=== PATIENT | male | born 1985 | race Caucasian/White ===

== ENCOUNTER 2023-01-21 02:48 | Inpatient (IN) | payer OTHER, SELFPAY ==
[2023-01-21 02:49] VITALS: BP 147/118; PULSE 107; RESP 18; TEMP 36.7; O2SAT 99; BMI 26.6
[2023-01-21 03:45] LABS: Basophils % 0.4 %; Eosinophils # 0.1 10^3/uL (0.0-0.8); Eosinophils % 1.2 %; Hematocrit 41.7 % (37-53); Lymphocytes % 12.5 %; Mean Corpuscular HGB Conc 32.1 g/dL (30-55); Mean Corpuscular Volume 93.5 fl (82-101); Mean Platelet Volume 8.5 fL (7.4-10.4); Monocytes # 0.9 10^3/uL (0.2-0.9); Monocytes % 11.1 %; Neutrophils # 6.18 10^3/uL (1.8-7.7); Neutrophils % 74.4 %; Nucleated Red Blood Cells % 0 %; Platelet Count 351 10^3/cmm (157-399); Red Blood Count 4.46 10^6/uL (3.85-5.65); Red Cell Distribution Width 13.2 % (12.1-15.1)
[2023-01-21 04:01] LABS: Add Urine Culture? No; Add Urine Microscopic? YES; Amorphous Sediment Urine 2+ /hpf; Bacteria Urine 1+ /hpf; Bilirubin Urine Neg (Negative); Blood Urine Neg (Negative); Glucose Urine UA Norm (Normal); Ketones Urine Negative (Negative); Leukocyte Esterase Urine Negative (Negative); Nitrate Urine Negative (Negative); Protein Urine Neg (Negative); Sulfosalicylic Acid Urine Negative (Negative); Urine Appearance SL Hazy (CLEAR); Urine Color Yellow (Yellow); Urobilinogen Urine Neg (Negative); pH Urine 8 (5-7)
[2023-01-21 04:02] LABS: Amphetamines Screen Urine Positive (Negative); Barbiturates Screen Urine Negative (Negative); Benzodiazepines Screen Urine Negative (Negative); Cocaine Screen Urine Negative (Negative); Opiate Screen Urine Negative (Negative); PCP Screen Urine Negative (Negative); THC Screen Urine Negative (Negative)
[2023-01-21 04:03] LABS: Alanine Aminotransferase 19 U/L (0-41); Albumin Level 4.1 g/dL (3.5-5.2); Alkaline Phosphatase 84 U/L (40-130); Anion Gap 14.7 (5-19); Aspartate Amino Transferase 18 U/L (0-40); Blood Urea Nitrogen 7 mg/dL (6-20); Calcium 9.4 mg/dL (8.5-10.5); Carbon Dioxide 26 mmol/L (22-29); Chloride 100 mmol/L (98-107); Creatinine Clr Calc Pharmacy 135.5589; Globulin 2.6 g/dL (1.3-4.6); Glomerular Filtration Rate 109.4 mL/min (90-130); Glucose 99 mg/dL (65-115); Osmolality Calculated 282 mOsm/kg (285-295); Potassium 3.7 mmol/L (3.5-5.1); Sodium 137 mmol/L (136-145); Total Bilirubin 1.1 mg/dL (0.15-1.2); Total Protein 6.7 g/dL (6.6-8.7)
[2023-01-21 04:04] LABS: Acetaminophen < 5.0 ug/mL (10-30); Alcohol Level < 10 mg/dL (0-10); Salicylate < 0.3 mg/dL (3-10)
--- NOTE | 2023-01-21 04:36 | PC.NURSE ---
Pt served with copy of 96 Hour Hold by this RN and security. All questions answered.
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
[2023-01-21 05:32] VITALS: BP 135/89; BP 137/74; PULSE 85; RESP 16; TEMP 37.1; O2SAT 98
[2023-01-21 06:00] VITALS: BP 135/89; PULSE 85; RESP 16; TEMP 37.1; O2SAT 98
[2023-01-21 14:00] VITALS: BP 128/74; PULSE 86; RESP 14; TEMP 37.1; O2SAT 94
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
[2023-01-21 20:44] VITALS: RESP 16
[2023-01-22 06:00] VITALS: BP 117/85; PULSE 80; RESP 18; O2SAT 98
[2023-01-22 14:00] VITALS: BP 123/79; PULSE 104; RESP 14; TEMP 36.9; O2SAT 99
--- NOTE | 2023-01-22 16:27 | P.NPUPN_ITS ---
Subjective NPU 2 Subjective: Patient presented today reporting that he is doing better. He continues to downplay the situation that led to the hospitalization. He continues to focus on wanting to be discharged. We continue to discuss the guns and that behavior and concerns about his restlessness. He continues to report no need for medication. Mental Status Exam 2 MSE Comments: This is a well-nourished, well-developed, white male, in hospital scrubs, with limited grooming and eye contact. No abnormal movements, except for mild psychomotor retardation. Cooperative with exam in no acute distress. Speech was decreased rate and volume. Mood described as fine; affect subdued. Thought process, organized. Thought content: patient denied any suicidal or homicidal ideation, there were no delusions reported or noted, patient denied any auditory or visual hallucinations. Attention, concentration, and memory appeared intact, but none were formally tested. Alert and oriented times three. Insight and judgment appear impaired. Impulse control is impaired. Vitals/I&O/Wt Last Vital Signs Temp 98.8 F 01/21/23 14:00 Pulse 80 01/22/23 06:00 Resp 18 01/22/23 06:00 BP 117/85 01/22/23 06:00 Pulse Ox 98 01/22/23 06:00 O2 Del Method Room Air 01/22/23 06:00 Weight last 48 hrs Weight 81.647 kg Data NPU 01/21/23 03:35 01/21/23 03:35 A&P Assessment and plan (1) Suicidal ideation: (2) Depression: Qualifiers: Depression Type: reactive depression Qualified Code(s): F32.9 - Major depressive disorder, single episode, unspecified Plan This is a 37-year-old, white male, who presents on a hold secondary to a conflict with an ex that led to a suicide threat, reporting no previous history of psychiatric issues or treatment, and no current lethality or desire for psychiatric interventions. 1.? Encourage individual, group, and milieu therapy. 2.? Continue q-15-minute checks for safety. 3. Encourage sober living treatment after discharge at the highest level care to which she is willing to commit. 4. Will identify where guns are and safety related to 96-hour hold. Involuntary Hold Information 2 96 Hour Hold: 96 Hour Involuntary Admission: Yes 96 Hour Hold Ending Date: 01/27/23 96 Hour Hold Ending Time: 04:25 Attestations NPU 2 Medical Necessity Statement*: Inpatient hospitalization is medically necessary and the clinically appropriate intervention, at this time. We will monitor medications and make changes as indicated. Likely length of stay is 2-4 days. Coding Level of Care Code Acute Code for [facility] Fwd Diagnoses Suicidal ideation R45.851 Depression F32.9 Depression Type: reactive depression
[2023-01-22 20:35] VITALS: BP 125/77; PULSE 95; RESP 15; TEMP 37.2; O2SAT 96
--- NOTE | 2023-01-22 20:52 | PC.NURSE ---
IN BED RESTING AROUSES TO VOICE. DENIES SI/HI AND AVH AT THIS TIME. PT IS WITHDRAWN TO ROOM. DENIES PAIN. DOES NOT WANT ANY PRNS, PT STATES I'M FINE I SHOULDNT EVEN BE HERE. ALL QUESTIONS ANSWERED AND SUPPORT VOICED.
[2023-01-23 06:00] VITALS: RESP 15
[2023-01-23 14:00] VITALS: BP 112/70; PULSE 92; RESP 18; TEMP 36.6; O2SAT 97
[2023-01-23] MEDS: hyDROXYzine 25 mg Capsule 50 MG PO (16:05)
--- NOTE | 2023-01-23 17:59 | P.NPUPN_ITS ---
Subjective NPU 2 Subjective: Patient presented today reporting that he is feeling better overall. We discussed his methamphetamine use and the implications there from. He was more open to discussion and reported a willingness to do outpatient rehab in an attempt to continue his job. He is working with the social work team for appropriate follow-up. We discussed the likelihood of discharge in the next 48 hours and possibly tomorrow. Mental Status Exam 2 MSE Comments: This is a well-nourished, well-developed, white male, in hospital scrubs, with improved grooming and eye contact. No abnormal movements, except for mild psychomotor retardation. Cooperative with exam in no acute distress. Speech was decreased rate and volume. Mood described as better; affect congruent. Thought process, organized. Thought content: patient denied any suicidal or homicidal ideation, there were no delusions reported or noted, patient denied any auditory or visual hallucinations. Attention, concentration, and memory appeared intact, but none were formally tested. Alert and oriented times three. Insight and judgment appear impaired. Impulse control is impaired. Vitals/I&O/Wt Last Vital Signs Temp 98.9 F 01/22/23 20:35 Pulse 95 01/22/23 20:35 Resp 15 01/23/23 06:00 BP 125/77 01/22/23 20:35 Pulse Ox 96 01/22/23 20:35 O2 Del Method Room Air 01/22/23 20:35 Data NPU 01/21/23 03:35 01/21/23 03:35 A&P Assessment and plan (1) Suicidal ideation: (2) Depression: Qualifiers: Depression Type: reactive depression Qualified Code(s): F32.9 - Major depressive disorder, single episode, unspecified Plan This is a 37-year-old, white male, who presents on a hold secondary to a conflict with an ex that led to a suicide threat, reporting no previous history of psychiatric issues or treatment, and no current lethality or desire for psychiatric interventions. 1.? Encourage individual, group, and milieu therapy. 2.? Continue q-15-minute checks for safety. 3. Encourage sober living treatment after discharge at the highest level care to which she is willing to commit. 4. Will identify where guns are and safety related to 96-hour hold. Will consider discharge tomorrow. Involuntary Hold Information 2 96 Hour Hold: 96 Hour Involuntary Admission: Yes 96 Hour Hold Ending Date: 01/27/23 96 Hour Hold Ending Time: 04:25 Attestations NPU 2 Medical Necessity Statement*: Inpatient hospitalization is medically necessary and the clinically appropriate intervention, at this time. We will monitor medications and make changes as indicated. Likely length of stay is 1-3 days. Coding Level of Care Code Acute Code for [facility] Fwd Diagnoses Suicidal ideation R45.851 Depression F32.9 Depression Type: reactive depression
[2023-01-23 20:21] VITALS: BP 115/67; PULSE 114; RESP 17; O2SAT 95
--- NOTE | 2023-01-23 20:35 | PC.NURSE ---
PT IN BED RESTING AROUSES TO VOICE. PT CONTINUES TO WITHDRAW TO ROOM AND ISOLATE. PT DENIES PAIN, SI/HI AND AVH AT THIS TIME. RATES ANXIETY AND DEPRESSION 0/10. PT STATES HE THINKS HE IS LEAVING TOMORROW. RN DID NOT VERIFY THIS, NOTHING HAD BEEN REPORTED THAT HE WAS DISCHARGING. ALL QUESTIONS ANSWERED AND SUPPORT VOICED.
[2023-01-24 06:00] VITALS: RESP 15
--- NOTE | 2023-01-24 06:25 | PC.NURSE ---
PT HAS RESTED WELL THROUGHOUT THE SHIFT, SLEEPING APPROXIMATELY 10 HOURS FOR THE SHIFT WITH NO PRN MEDICATIONS GIVEN.
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
== END 2023-01-24 14:15 | disposition home or self-care (01) | DRG 881 ==
LOC: ER 05:12 → NP 05:21
PROVIDERS: Admitting Provider Psychiatry & Neurology Psychiatry; Emergency Provider Internal Medicine; PCP Family Medicine; Visit Provider Psychiatry & Neurology Psychiatry
DX: F32.9 Major depressive disorder, single episode, unspecified (principal); R45.851 Suicidal ideations; F17.210 Nicotine dependence, cigarettes, uncomplicated; F15.90 Other stimulant use, unspecified, uncomplicated
CPT/HCPCS: 80053; 80306; 80307; 81001; 85025; 97150; 97165; 99285

== ENCOUNTER 2023-03-11 09:19 | Outpatient (CLI) | payer OTHER, SELFPAY ==
--- NOTE | 2023-03-11 09:26 | MR_ITS ---
WS: [id number] MRI RIGHT WRIST WITHOUT CONTRAST. COMPARISON: Radiograph 02/04/2023 Multiplanar, multisequence imaging is performed without contrast. Focal marrow edema involving the distal lateral radius but no fracture. The edema extends towards the radial styloid and also into the proximal metaphysis. The adjacent extensor pollicis brevis and also possibly the abductor pollicis longus tendon contain increased signal consistent with some mild tend inopathy and injury. The signal abnormalities in the tendons and the bone are adjacent to each other suggesting contusion type injury. The distal radial ulnar joint is normal. Scapholunate ligament appears normal. No signal abnormality in the TFCC. Carpal rows are normal. No erosions. IMPRESSION: 1. Marrow contusion signal involving the distal lateral radius to include the styloid. No fracture. 2. Adjacent to the marrow signal abnormality is increased signal and edema within the tendons and te ndon sheath of the extensor pollicis brevis and the abductor pollicis longus tendons. Consistent with contusion type injury to the tendon and sheath. No full-thickness tear or retraction.
== END 2023-03-11 09:20 | disposition home or self-care (01) ==
PROVIDERS: PCP Family Medicine; Visit Provider Family Medicine
DX: M25.531 Pain in right wrist (principal); R93.6 Abnormal findings on diagnostic imaging of limbs
CPT/HCPCS: 73221